=== PATIENT | male | born 1960 | race African-American/Black ===

== ENCOUNTER 2023-07-24 22:20 | Emergency (ER) | payer OTHER ==
[~2023-07-24] VITALS: Ht 188 cm; Wt 127.0 kg
[2023-07-24 22:21] VITALS: O2SAT 98
[2023-07-24] MEDS: SODIUM CHLORIDE 0.9% 1,000 ML IV ONE (22:55)
[2023-07-24 22:57] LABS: BASOPHILS % 0.6 % (0.0-2.0); EOSINOPHILS % 3.1 % (0.0-5.0); HEMATOCRIT. 41.1 % (42.0-52.0); HEMOGLOBIN. 14.2 g/dL (14.0-18.0); MEAN CORPUSCULAR HGB CONC 34.7 g/dL (31.0-37.0); MEAN CORPUSCULAR VOLUME 80.7 fL (80.0-94.0); MEAN PLATELET VOLUME 7.4 fl (7.4-10.4); MONOCYTES % 6.2 % (2.0-8.0); NEUTROPHILS % 58.1 % (40.0-76.0); PLATELET 298 x1000/uL (130-400); RED BLOOD CELL COUNT 5.09 mill/uL (4.7-6.1); RED CELL DISTRIBUTION WIDTH 13.7 % (11.6-14.6); WHITE BLOOD COUNT 9.4 x1000/uL (4.5-11.0)
[2023-07-24 23:16] LABS: ALANINE AMINOTRANSFERASE 27 IU/L (10-49); ASPARTATE AMINOTRANSFERASE 30 IU/L (<34); BILIRUBIN TOTAL 0.5 mg/dL (0.1-1.0); CALCIUM 9.5 mg/dL (8.7-10.4); CARBON DIOXIDE 18 mEq/L (21-32); CHLORIDE 103 mEq/L (98-107); CREATININE 1.7 mg/dL (0.6-1.3); ETHANOL BLOOD < 10 mg/dL (<10); GLUCOSE 119 mg/dL (70-105); POTASSIUM 4.4 mEq/L (3.5-5.1); PROTEIN TOTAL 9.1 g/dL (6.0-8.3); SODIUM 132 mEq/L (136-145); TROPONIN I HIGH SENSITIVITY 7 ng/L (3.0-53); UREA NITROGEN BLOOD 17 mg/dL (9-23)
[2023-07-25 00:49] LABS: TROPONIN I HIGH SENSITIVITY 7 ng/L (3.0-53)
[2023-07-25 02:13] LABS: TROPONIN I HIGH SENSITIVITY 6 ng/L (3.0-53)
[2023-07-25] MEDS: MORPHINE SULFATE 4 MG/ML CPJ (NOT FOR IM USE) IV ONE (04:05)
[2023-07-25 05:00] VITALS: BP 94/70; PULSE 90; RESP 16; TEMP 97.8
== END 2023-07-25 07:00 | disposition short-term general hospital (02) ==
LOC: ER 22:20
DX: S01.511A Laceration without foreign body of lip, initial encounter (principal); R55 Syncope and collapse; I10 Essential (primary) hypertension; Z85.038 Personal history of other malignant neoplasm of large intestine; X58.XXXA Exposure to other specified factors, initial encounter; Y93.89 Activity, other specified; Y92.89 Other specified places as the place of occurrence of the external cause; Y99.8 Other external cause status
CPT/HCPCS: 80053; 80320; 82962; 83605 ×2; 85025; 84484 ×2; 36415 ×2; 71045; 70450; 96361; 99285; 96374; J7030; J2270; G0480

== ENCOUNTER 2023-11-03 13:42 | Emergency (ER) | payer OTHER ==
[~2023-11-03] VITALS: Ht 185.4 cm; Wt 115.0 kg
[2023-11-03 13:43] VITALS: O2SAT 95
[2023-11-03 16:30] VITALS: BP 115/78; PULSE 69; RESP 17; TEMP 98.1
== END 2023-11-03 16:52 | disposition home or self-care (01) ==
LOC: ER 14:10
DX: S01.01XA Laceration without foreign body of scalp, initial encounter (principal); E78.00 Pure hypercholesterolemia, unspecified; I10 Essential (primary) hypertension; W01.0XXA Fall on same level from slipping, tripping and stumbling without subsequent striking against object, initial encounter; Y93.89 Activity, other specified; Y92.89 Other specified places as the place of occurrence of the external cause; Y99.8 Other external cause status
CPT/HCPCS: 70450; 99284; Z7610 ×2